=== PATIENT | female | born 1950 | race Caucasian/White ===

== ENCOUNTER → 2017-03-04 18:49 | Outpatient (CLI) | payer MEDICARE ==
[2015-08-03 13:56] VITALS: BMI 29.0
[~2017-03-04 18:49] MED LIST: ALAWAY10 ML EACH EYE; ASPIRIN EC81 M1 PO; ATIVAN1 MG PO; BENEFIBER1 PKT PO; BIOTIN PO; BUMEX 1 MG TAB1 MG PO; COLACE100 MG PO; DEXILANT60 MG PO; DULERA 100 MCG8.8 GM INH; FERROUS SULFAT325 MG PO; GAVISCON LIQUI355 ML PO; HYDROCODONE-APA1 TAB PO; ICAR C PLUS PO; LEVAQUIN500 MG PO; LEXAPRO20 MG PO; LUTEIN20 MG PO; MEDROL DOSE PACK4 MG PO; NASONEX NASAL S17 GM NS; PHENERGAN25 M1 PO; PLAVIX75 MG PO; POTASSIUM99 M1 PO; PREMARIN0.625 MG PO; PRINIVIL20 MG PO; PROAIR HFA8.5 GM INH; SINGULAIR10 MG PO; SOMA350 MG PO; SYNTHROID75 MCG PO; TUMS500 MG PO; VITAMIN B-122500 MCG PO; VITAMIN B-6200 M1 PO; VITAMIN D3 PO; XANAX0.25 MG PO; ZYRTEC10 MG; ZYRTEC10 MG PO
== END | disposition home or self-care (01) ==
LOC: D.MAMMO 13:00
DX: Z12.31 Encounter for screening mammogram for malignant neoplasm of breast (principal)

== ENCOUNTER → 2017-03-27 16:29 | Outpatient (CLI) | payer MEDICARE ==
[2015-08-03 13:56] VITALS: BMI 29.0
== END | disposition home or self-care (01) ==
LOC: D.MAMMO 14:00
DX: R92.8 Other abnormal and inconclusive findings on diagnostic imaging of breast (principal)

== ENCOUNTER → 2017-06-19 13:21 | Outpatient (CLI) | payer MEDICARE ==
[2015-08-03 13:56] VITALS: BMI 29.0
== END | disposition home or self-care (01) ==
LOC: D.RAD 13:21
DX: K59.00 Constipation, unspecified (principal)

== ENCOUNTER 2017-08-25 11:45 | Emergency (ER) | payer MEDICARE ==
[2015-08-03 13:56] VITALS: BMI 29.0
[2017-08-25 12:24] LABS: BASOPHILS 0.2 % (0-2); EOSINOPHILS 2.1 % (0-7); HEMATOCRIT 39.6 % (36.0-48.0); HEMOGLOBIN 13.2 g/dL (12-16); IMMATURE GRANULOCYTES 0.2 % (0-5); LYMPHOCYTES 10.9 % (15-50); MCH 30.1 pg (26.0-34.0); MCHC 33.3 g/dL (31.0-37.0); MCV 90.2 fL (80.0-100.0); MEAN PLATELET VOLUME 9.1 fL (7.4-10.4); MONOCYTES 2.1 % (2-11); NEUTROPHILS 84.5 % (40-80); PLATELET COUNT 191 10x3/uL (130-400); RBC 4.39 10x6/uL (4.00-5.40); RDW 13.3 % (11.5-14.5); WBC 6.1 10x3/uL (4.8-10.8)
[2017-08-25 12:46] LABS: ALBUMIN 3.6 g/dL (3.4-5.0); ALKALINE PHOSPHATASE 68 U/L (46-116); ALT (SGPT) 20 U/L (10-68); BILIRUBIN - TOTAL 0.28 mg/dL (0.2-1.3); CALC OSMOLALITY 280 mosm/kg (275-300); CALCIUM 8.5 mg/dL (8.5-10.1); CHLORIDE - SERUM 102 mmol/L (98-107); CREATININE - SERUM 1.1 mg/dL (0.6-1.3); GLUCOSE 97 mg/dL (74-106); POTASSIUM - SERUM 3.8 mmol/L (3.5-5.1); PROTEIN - SERUM 7.5 g/dL (6.4-8.2); SODIUM 140 mmol/L (136-145); UREA NITROGEN 19 mg/dL (7-18); eGFR NON AFRICAN AMERICAN 52 mL/min (90-120)
[2017-08-25 12:50] LABS: TROPONIN-I < 0.017 ng/mL (0.000-0.060)
== END 2017-08-25 19:34 | disposition home or self-care (01) ==
LOC: D.ER 11:45
PROVIDERS: Emergency Medicine
DX: I10 Essential (primary) hypertension (principal); J44.9 Chronic obstructive pulmonary disease, unspecified; J45.909 Unspecified asthma, uncomplicated; H81.09 Meniere's disease, unspecified ear

== ENCOUNTER 2018-01-16 11:03 | Emergency (ER) | payer MEDICARE ==
[~2018-01-16] VITALS: Ht 170.2 cm; Wt 79.1 kg
[2018-01-16 11:19] VITALS: Ht 170.2 cm; Wt 79.1 kg
[2018-01-16 12:15] LABS: ALBUMIN 3.4 g/dL (3.4-5.0); ALKALINE PHOSPHATASE 69 U/L (46-116); ALT (SGPT) 14 U/L (10-68); BILIRUBIN - TOTAL 0.23 mg/dL (0.2-1.3); CALC OSMOLALITY 280 mosm/kg (275-300); CALCIUM 8.1 mg/dL (8.5-10.1); CARBON DIOXIDE 30.7 mmol/L (21.0-32.0); CHLORIDE - SERUM 105 mmol/L (98-107); CREATININE - SERUM 1.1 mg/dL (0.6-1.3); GLUCOSE 95 mg/dL (74-106); POTASSIUM - SERUM 3.6 mmol/L (3.5-5.1); PROTEIN - SERUM 6.5 g/dL (6.4-8.2); SODIUM 140 mmol/L (136-145); UREA NITROGEN 19 mg/dL (7-18); eGFR NON AFRICAN AMERICAN 52 mL/min (90-120)
[2018-01-16 12:22] LABS: BASOPHILS 0.9 % (0-2); HEMATOCRIT 34.4 % (36.0-48.0); HEMOGLOBIN 11.1 g/dL (12-16); LYMPHOCYTES 21.9 % (15-50); MCH 28.4 pg (26.0-34.0); MCHC 32.3 g/dL (31.0-37.0); MEAN PLATELET VOLUME 9.6 fL (7.4-10.4); MONOCYTES 9.1 % (2-11); NEUTROPHILS 56.1 % (40-80); PLATELET COUNT 198 10x3/uL (130-400); RBC 3.91 10x6/uL (4.00-5.40); RDW 13.6 % (11.5-14.5); WBC 5.6 10x3/uL (4.8-10.8)
[2018-01-16 12:27] LABS: CREATINE KINASE 120 UL (21-215)
[2018-01-16 12:29] LABS: TROPONIN-I < 0.017 ng/mL (0.000-0.060)
[2018-01-16] MEDS ORDERED: NORVASC10 MG PO (12:43)
[2018-01-16 13:26] VITALS: BP 171/88
== END 2018-01-16 13:46 | disposition home or self-care (01) ==
LOC: D.ER 11:03
PROVIDERS: Emergency Medicine
DX: I10 Essential (primary) hypertension (principal); R07.9 Chest pain, unspecified; R51 Headache; R42 Dizziness and giddiness; R11.2 Nausea with vomiting, unspecified; Z86.73 Personal history of transient ischemic attack (TIA), and cerebral infarction without residual deficits; E07.9 Disorder of thyroid, unspecified

== ENCOUNTER 2018-03-25 12:17 | Emergency (ER) | payer MEDICARE ==
[~2018-03-25] VITALS: Ht 170.2 cm; Wt 79.1 kg
[~2018-03-25 12:17] MED LIST changes: +NORVASC10 MG PO
[2018-03-25 12:22] VITALS: Ht 170.2 cm; Wt 79.1 kg
[2018-03-25 14:32] VITALS: BP 122/64
== END 2018-03-25 14:32 | disposition home or self-care (01) ==
LOC: D.ER 12:17
DX: S00.93XA Contusion of unspecified part of head, initial encounter (principal); S80.02XA Contusion of left knee, initial encounter; W18.31XA Fall on same level due to stepping on an object, initial encounter; Y93.89 Activity, other specified; Y92.019 Unspecified place in single-family (private) house as the place of occurrence of the external cause; Z86.73 Personal history of transient ischemic attack (TIA), and cerebral infarction without residual deficits; G40.909 Epilepsy, unspecified, not intractable, without status epilepticus; E03.9 Hypothyroidism, unspecified; I10 Essential (primary) hypertension

== ENCOUNTER → 2018-08-06 12:59 | Outpatient (CLI) | payer MEDICARE ==
[2018-03-25 12:22] VITALS: BMI 27.3
== END | disposition home or self-care (01) ==
LOC: D.MRI 12:59
PROVIDERS: ATTEND Orthopaedic Surgery
DX: M54.16 Radiculopathy, lumbar region (principal)

== ENCOUNTER → 2018-09-03 13:51 | Day surgery (SDC) | payer MEDICARE ==
[2018-03-25 12:22] VITALS: BMI 27.3
--- NOTE | ~2018-09-03 | HEMODYNAMI ---
PATIENT:ALEJANDRA BURGOS MEDICAL RECORD: [id number] : 46 LOCATION:[facility] ADMISSION DATE: 09/03/18 Generatedon:09/03/201815:15 Patient name: ALEJANDRA BURGOS Patient #: [id number] SSN: D OB: 1950 Date of study: 09/03/2018 Page: Of Hemodynamic Procedure Report Patient Data Patient Demographics Procedure consent was obtained First Name: ALEJANDRA Gender: Female Last Name: AUBREY : 1950 Middle Initial: RADHA Age: 68 year(s) Patient #: [id number] Race: Unknown Additional ID: [id number] Contact details Address: [address] [place] [address] State: [place] City: [place] Zip code: [address] Past Medical History Allergies Allergen Reaction Date Comments Reported Demerol 09/03/2018 Morphine 09/03/2018 Admission Admission Data Admission Date: 09/03/2018 Admission Time: 13:51 Procedure Procedure Types Cath Procedure Peripheral Cath Diagnostic Procedure Miscellaneous Epidural Steroid Injection Procedure Description Procedure Date Procedure Date: 09/03/2018 Procedure Start Time: 15:02 Procedure Staff Name Function Bethel Alvarez MD Performing Physician Everardo Grover RT Monitor Karen Fisher RN Nurse Procedure Data Cath Procedure Fluoroscopy Diagnostic fluoroscopy Total fluoroscopy Time: 0.2 time: 0.2 min min Diagnostic fluoroscopy Total fluoroscopy dose: 5 dose: 5 mGy mGy Hemodynamics Rest Pre Cath Intra NCS Post Cath Procedure Log Time Note 14:58:34 Everardo Grover RT (R) (CV) sent for patient. Start room use. 14:58:41 Time tracking: Regular hours (M-F 7:00 - 5:00) 14:58:46 Patient received from Outpatients to IR Alert and oriented. Tansferred to table in Prone position. 14:58:49 Signed procedure consent form obtained from patient. 14:58:51 Correct patient and procedure confirmed by team. 14:58:53 Full Disclosure recording started 14:58:55 Pre-procedure instructions explained to patient. 14:58:56 Pre-op teaching completed and patient verbalized understanding. 14:59:08 Patient allergic to Demerol 14:59:32 Patient allergic to Morphine 14:59:35 Is patient on blood thinner?No 14:59:45 Lumbar area was prepped with betadine and draped in sterile fashion 15:01:41 Physician arrived 15:01:41 --------ALL STOP TIME OUT------ 15:01:42 Final Timeout: patient, procedure, and site verified with staff and physician. All members of the team are in agreement. 15:01:45 Lumbar site verified by team. 15:02:02 Procedure started. 15:02:14 Sedation plan: Local Anesthetic Medication:Lidocaine 15:02:26 Local anesthetic to Lumbar area with Lidocaine 1% by Bethel Alvarez MD.INITIAL ACCESS ONLY 15:02:37 KIT EPIDURAL CATHETERIZATION opened to sterile field. 15:14:23 Procedure ended.(Physican Out) 15:14:37 Fluoroscopy time 00.20 minutes. 15:14:40 Fluoroscopy dose: 5 mGy 15:14:40 Flurop Dose total: 5 15:14:57 bandaide applied site stable and pt .sent home Device Usage Item Name Manufacture Quantity Catalog Hospital Part Current Minima l Lot# / Number Charge Number Stock Stock Serial# Code KIT EPIDURAL Teleflex 1 [id number] CATHETERIZATION Signature Audit [place] Stage Time Signature Unsigned Intra-Procedure 09/03/2018 Everardo 3:15:11 PM Lenore RT (R) (CV) Signatures Monitor : Everardo Signature : Lenore RT Date : Time : [place] [id number] [place] [address]
== END | disposition home or self-care (01) ==
LOC: D.SP 13:00
PROVIDERS: ATTEND Orthopaedic Surgery
DX: M54.5 Low back pain (principal); Z01.812 Encounter for preprocedural laboratory examination

== ENCOUNTER 2019-01-11 18:29 | Emergency (ER) | payer MEDICARE ==
[~2019-01-11] VITALS: Ht 170.2 cm; Wt 79.5 kg
[2019-01-11 18:32] VITALS: Ht 170.2 cm; Wt 79.5 kg
[2019-01-11 20:30] VITALS: BP 164/92
== END 2019-01-11 20:30 | disposition home or self-care (01) ==
LOC: D.ER 18:29
DX: S80.02XA Contusion of left knee, initial encounter (principal); X58.XXXA Exposure to other specified factors, initial encounter; Y93.89 Activity, other specified; Y92.89 Other specified places as the place of occurrence of the external cause; S13.4XXA Sprain of ligaments of cervical spine, initial encounter

== ENCOUNTER → 2019-05-03 20:55 | Outpatient (CLI) | payer MEDICARE ==
[2019-01-11 18:32] VITALS: BMI 27.4
== END | disposition home or self-care (01) ==
LOC: D.MAMMO 03-26 11:15
PROVIDERS: ATTEND Family Medicine
DX: Z12.31 Encounter for screening mammogram for malignant neoplasm of breast (principal)

== ENCOUNTER → 2019-11-10 08:07 | Outpatient (CLI) | payer MEDICARE ==
[2019-01-11 18:32] VITALS: BMI 27.4
--- NOTE | ~2019-11-10 | EC ---
PATIENT:ALEJANDRA BURGOS DATE OF SERVICE: 11/10/19 SEX: F MEDICAL RECORD: [id number] DATE OF : 46 LOCATION:[facility] AGE OF PATIENT: 69 ADMISSION DATE: 11/10/19 REFERRING PHYSICIAN: INTERPRETING PHYSICIAN: ROLAND FINLEY MD ECHOCARDIOGRAM REPORT ECHO CHARGES 4 ECHO COMPLETE Date: 11/10/19 CLINICAL DIAGNOSIS: HTN/HEART MURMUR ECHOCARDIOGRAPHIC MEASUREMENTS (adult normal given) AC root (d.<3.7cm) 3.6 cm LV Septum d (<1.2 cm> 1.6 cm Valve Excursion 1.3 cm LV Septum (systole) 1.7 cm Left Atria (s.<4.0cm> 5.2 cm LVPW d(<1.2cm) 1.4 cm RV (d.<2.3cm) 3.7 cm LVPW (sytole) 1.9 cm LV diastole(<5.6CM) 4.5 cm MV E-F(>70mm/sec) cm LV systole 2.2 cm LVOT Diameter 1.8 cm MV exc.(>10mm) 1.4 cm Est.ejection fraction (50-75%) % DOPPLER: LVIT cm/sec A 138.0cm/sec E 109.0 cm/sec LA cm/sec RVSP 37 mmHg LVOT 121 cm/sec AOP1/2T 556 m/s Asc. Ao 170 cm/sec RVOT 80 cm/sec RA cm/sec PA 89 cm/sec AV Gradient Peak 11.63mmHg AV Mean 6.03 mmHg AV Area 1.8 cm MV Gradient Peak 8.68 mmHg MV Mean 2.80 mmHg MV Area cm COMMENTS: Garageman: 2 MARIAH JOSE Mail Technician: 3 Dr. Mckay TAPE# PACS Pericardial Effusion N DATE OF SERVICE: Adequate 2D, color flow imaging, spectral Doppler, and M-Mode. LVH is present. LV internal dimensions are normal. Wall motion is normal. EF is greater than or equal to 55%. Aortic valve is tricuspid. No evidence of stenosis by Doppler interrogation. Left atrium is dilated at 5.2 cm. Mitral valve is thickened. Moderate MR. Right-sided chambers are grossly normal. Mild TR. ECHOCARDIOGRAM REPORT [id number] ALEJANDRA BURGOS TRANSINT:[id number] Voice Confirmation ID: [id number] DOCUMENT ID: [id number] ROLAND FINLEY MD CC: [id number] DICTATION DATE: 11/11/19 1516 TILESETTER: 11/11/19 1827 DEP CLI 11/10/19 [place] [id number] [place] [id number]
== END | disposition home or self-care (01) ==
LOC: D.HCCECHO 08:07
PROVIDERS: ATTEND Internal Medicine Cardiovascular Disease
DX: I20.9 Angina pectoris, unspecified (principal); I10 Essential (primary) hypertension

== ENCOUNTER 2020-08-19 18:55 | Inpatient (IN) | payer MEDICARE ==
[~2020-08-19] VITALS: Ht 165.1 cm; Wt 68.9 kg
--- NOTE | ~2020-08-19 | OP ---
PATIENT NAME: ALEJANDRA CASTELLON MEDICAL RECORD: [id number] :46 LOCATION:D.M3 D.1205 ADMISSION DATE:08/19/20 SURGEON: ANMOL SCHMIDT MD DATE OF OPERATION: 08/21/2020 PREOPERATIVE DIAGNOSIS: Right intertrochanteric hip fracture. POSTOPERATIVE DIAGNOSIS: Right intertrochanteric hip fracture. PROCEDURE PERFORMED: Cephalomedullary nailing, right hip. INDICATIONS: Ms. Castellon is a 70-year-old female who fell this weekend and injured her right hip. She was walking in her house, going up some steps when she tripped and fell landing on her right side. She complained of pain and inability to weightbear following the accident and was brought to [place] where x-rays showed a fracture of the right hip. CT scan showed evidence of a greater trochanteric fracture that appeared to extend into the intertrochanteric region posteriorly. I talked to her about the injury and need for surgical repair. She was seen by Dr. Pal with the medical team and optimized for surgery. Arrangements made for her to come to the operating room today. Risks, benefits and alternatives of surgery were discussed with the patient and consent was obtained. DESCRIPTION OF PROCEDURE: The patient was met in the holding area where her identity and confirmation of procedure was performed. The right lower extremity was marked. She was taken to the operating room where she was placed supine on the operating table, and anesthesia was administered. She was then positioned on the Hunter table. Extremities were positioned and padded appropriately. Right lower extremity was prepped and draped in a sterile fashion. The patient received preoperative antibiotics and timeout was performed before initiating the case. Upon initiation of the case, a starting point at the greater trochanter was obtained. Incision was made over the lateral hip and our guide pin was inserted. We then obtained our starting point at the tip of the greater trochanter both in the AP and lateral planes. The guidewire was then advanced. We then overreamed with our opening reamer. A 10 x 170 gamma nail was then placed and advanced down to the appropriate level of the femoral neck. Once we were pleased with its position, a separate incision was made over the lateral hip for a cephalomedullary guide. It was then inserted and our cephalomedullary guidepin was then placed into the center of the femoral head. This was confirmed with AP and lateral planes. It was measured to 80. We then overdrilled for our cephalomedullary screw and advanced the irrigating pump operator to the appropriate depth. The proximal locking screw was then placed and backed off a quarter turn. The cephalomedullary guide was removed and a distal locking screw was placed through the static hole using the outrigger device. This completed our fixation. Final images were obtained that showed good alignment and fixation of her fracture. Tip apex distance was less than 25 mm. The wounds were irrigated thoroughly with saline. The deep tissues were closed with Vicryl suture and the skin was closed with kiran. A sterile dressing was placed. The patient was turned back over to anesthesia where she was awakened, extubated, and taken to recovery room in stable condition. POSTOPERATIVE PLAN: The patient is going to return to the floor for continued postoperative care. She will receive 24 hours of postoperative antibiotics and will be started on DVT prophylaxis tomorrow. Physical therapy will be consulted to assist with mobilization, weightbearing as tolerated, right lower extremity. OPERATIVE REPORT [id number] ALEJANDRA CASTELLON Rehab consult will also be placed. COMPLICATIONS: None. ESTIMATED BLOOD LOSS: 400 mL. ANESTHESIA: General. TRANSINT:[id number] Voice Confirmation ID: [id number] DOCUMENT ID: [id number] ANMOL SCHMIDT MD CC: [id number] DICTATION DATE: 08/21/20 1418 CEMENT CUTTER: 08/21/202219 ADM IN [place] [id number] [place] [id number]
--- NOTE | 2020-08-19 19:00 | NUR ---
ASSUMED PT CARE
--- NOTE | 2020-08-19 19:15 | NUR ---
NOTIFIED PROVIDER OF HYPOTENSION, ORDER RECIEVED FOR NS BOLUS.
--- NOTE | 2020-08-19 21:15 | NUR ---
NOTIFIED PROVIDER DARWIN HAMPTON OF PT REMAINING HYPOTENSIVE AFTER BOLUS, ORDER TO CHECK MANUAL BP.
--- NOTE | 2020-08-19 21:20 | NUR ---
MANUAL BP 88/58
--- NOTE | 2020-08-19 21:32 | NUR ---
NOTIFIED DARWIN HAMPTON OF RESULT OF MANUAL BP, ORDER TO INCREASE FLUIDS TO 150 MLS/HR
[2020-08-19 23:15] VITALS: BP 133/53
[2020-08-19 23:53] VITALS: BMI 25.3
[2020-08-20] MEDS ORDERED: CYMBALTA60 MG PO (00:36)
[2020-08-20] MEDS ORDERED: NEXIUM40 MG PO (00:36)
[2020-08-20] MEDS ORDERED: FLUTICASONE PRO16 GM NASAL (00:37)
[2020-08-20] MEDS ORDERED: GABAPENTIN100 MG PO (00:37)
[2020-08-20] MEDS ORDERED: PREDNISOLONE AC15 ML RIGHT EYE (00:39)
[2020-08-20] MEDS ORDERED: LISINOPRIL40 MG PO (00:40)
[2020-08-20 04:00] VITALS: BP 136/66
[2020-08-20 05:26] LABS: BASOPHILS 0.2 % (0-2); HEMATOCRIT 25.9 % (36.0-48.0); HEMOGLOBIN 7.8 g/dL (12-16); LYMPHOCYTE ABS# 0.81 10x3/uL (1.18-3.74); LYMPHOCYTES 19.9 % (15-50); MCH 24.9 pg (26.0-34.0); MCHC 30.1 g/dL (31.0-37.0); MCV 82.7 fL (80.0-100.0); MEAN PLATELET VOLUME 9.1 fL (7.4-10.4); MONOCYTES 13.5 % (2-11); NEUTROPHIL ABS# 2.62 10x3/uL (1.56-6.13); NEUTROPHILS 64.4 % (40-80); RBC 3.13 10x6/uL (4.00-5.40); RDW 15.1 % (11.5-14.5); WBC 4.1 10x3/uL (4.8-10.8)
[2020-08-20 05:27] LABS: PLATELET COUNT 135 10x3/uL (130-400)
[2020-08-20 05:45] LABS: INR 1.22 (0.85-1.17); PROTIME 14.3 SECONDS (11.6-15.0)
[2020-08-20 05:47] LABS: ALBUMIN 2.9 g/dL (3.4-5.0); ANION GAP 9.3 mmol/L (8-16); BILIRUBIN - TOTAL 0.23 mg/dL (0.2-1.3); CALCIUM 8.2 mg/dL (8.5-10.1); CARBON DIOXIDE 28.4 mmol/L (21.0-32.0); POTASSIUM - SERUM 3.7 mmol/L (3.5-5.1); PROTEIN - SERUM 5.5 g/dL (6.4-8.2)
[2020-08-20 09:19] VITALS: BP 95/62
--- NOTE | 2020-08-20 12:45 | NUR ---
TRANSFUSING 1ST UNIT PRBC'S WITH NO S/S OF REACTION NOTED. SERVICE CORRESPONDENT AT PRESCRIBED SETTINGS WITH EFFECTIVE RELIEF OF RIGHT HIP PAIN
[2020-08-20 13:35] VITALS: BP 117/63
--- NOTE | 2020-08-20 15:07 | NUR ---
STARTED 2ND UNIT PRBC'S WITH NO S/S OF REACTION NOTED.
[2020-08-20 17:56] VITALS: BP 122/60
[2020-08-20 17:58] LABS: BASOPHILS 0.2 % (0-2); EOSINOPHILS 2.4 % (0-7); IMMATURE GRANULOCYTES 0.2 % (0-5); LYMPHOCYTE ABS# 1.03 10x3/uL (1.18-3.74); LYMPHOCYTES 20.4 % (15-50); MCH 26.1 pg (26.0-34.0); MCHC 31.1 g/dL (31.0-37.0); MEAN PLATELET VOLUME 8.7 fL (7.4-10.4); MONOCYTES 12.7 % (2-11); NEUTROPHIL ABS# 3.23 10x3/uL (1.56-6.13); NEUTROPHILS 64.1 % (40-80); PLATELET COUNT 116 10x3/uL (130-400); RBC 3.75 10x6/uL (4.00-5.40); RDW 14.6 % (11.5-14.5)
[2020-08-20 18:06] LABS: HEMATOCRIT 31.5 % (36.0-48.0); HEMOGLOBIN 9.8 g/dL (12-16)
--- NOTE | 2020-08-20 19:35 | NUR ---
PATIENT RESTING IN BED ON PHONE AND DENIES NEEDS AT THIS TIME. BED IN LOWEST POSITION AND CALL LIGHT IN REACH. ENCOURAGED PATIENT TO CALL WITH NEEDS.
[2020-08-20 20:00] VITALS: BP 119/65
--- NOTE | 2020-08-20 20:30 | NUR ---
ADMINISTERED MEDS PER ORDERS. ENCOURAGED TO CALL WITH NEEDS.
[2020-08-21] VITALS (13 sets, daily range): BP systolic 107–133; BP diastolic 45–550; Ht 165.1 cm; Wt 68.9 kg
--- NOTE | 2020-08-21 05:30 | NUR ---
THIRD UNIT PRBC'S TRANSFUSED
[2020-08-21 06:36] LABS: ANION GAP 7.4 mmol/L (8-16); CALCIUM 8.2 mg/dL (8.5-10.1); CARBON DIOXIDE 29.2 mmol/L (21.0-32.0); CREATININE - SERUM 0.9 mg/dL (0.6-1.3); POTASSIUM - SERUM 3.6 mmol/L (3.5-5.1)
[2020-08-21 07:08] LABS: BASOPHILS 0.4 % (0-2); EOSINOPHILS 3.1 % (0-7); HEMATOCRIT 33.7 % (36.0-48.0); HEMOGLOBIN 10.5 g/dL (12-16); IMMATURE GRANULOCYTES 0.2 % (0-5); LYMPHOCYTE ABS# 1.02 10x3/uL (1.18-3.74); LYMPHOCYTES 22.8 % (15-50); MCH 26.5 pg (26.0-34.0); MCHC 31.2 g/dL (31.0-37.0); MCV 85.1 fL (80.0-100.0); MEAN PLATELET VOLUME 9.2 fL (7.4-10.4); MONOCYTES 11.4 % (2-11); NEUTROPHIL ABS# 2.78 10x3/uL (1.56-6.13); NEUTROPHILS 62.1 % (40-80); PLATELET COUNT 116 10x3/uL (130-400); RBC 3.96 10x6/uL (4.00-5.40); RDW 14.8 % (11.5-14.5); WBC 4.5 10x3/uL (4.8-10.8)
--- NOTE | 2020-08-21 07:55 | HP ---
PATIENT: ALEJANDRA JOHNSON MEDICAL RECORD: [id number] ACCOUNT: [id number] LOCATION:D.MS Alvarez2216 : 46 ADMISSION DATE: 08/19/20 PCP: No PCP HISTORY AND PHYSICAL EXAMINATION REASON FOR ADMISSION: Right hip pain post-fall. HISTORY OF PRESENT ILLNESS: The patient is a delightful 70-year-old female with history of degenerative lumbar disc disease and stenosis, who has had trouble with back pain and weakness in her left leg for some time. She was scheduled for lumbar laminectomy, but had to delay that due to a corneal transplant she had performed. She said she has noticed her leg has been somewhat weakened yesterday when walking in her home. She thinks she caught her right toe on a step and fell forward full weight on her right hip. She developed intense pain, was brought to the ED and found to have a right trochanteric fracture with hematoma formation. The patient has been admitted for preoperative evaluation and surgery on the hip per Dr. Knight. She denies any recent chest pain. Had a negative Cardiolite stress test last year and echo did show left ventricular hypertrophy, LAE, and moderate MR. She denies any chest pain, shortness of breath. PAST HISTORY: Asthma; GERD; hypertension; arthritis; lumbar stenosis; hypothyroidism; macular degeneration; corneal dystrophy, right eye; Meniere's disease; peripheral neuropathy; depression. COVID-, July of 2019 and she has been vaccinated. Hypertension, hypothyroidism, osteoporosis, anemia, B12 deficiency, iron deficiency. SURGICAL HISTORY: Cholecystectomy; hysterectomy; tonsillectomy; vein stripping, varicose veins; ORIF, right ankle post-fracture; cataract surgery; corneal transplant, right eye. VACCINES: She has had Prevnar, Pneumovax, and flu vaccine. FAMILY HISTORY: Parents are . Mother of breast cancer. Father of multiple myeloma. One brother of multiple myeloma. ALLERGIES: DEMEROL, TALWIN, AND MORPHINE. HOME MEDICATIONS: Prilosec 20 mg daily, montelukast 10 mg with evening meal, clopidogrel 75 mg a day, gabapentin 100 mg 2 capsules b.i.d., Flonase nasal spray 1 spray each nostril daily, [place] 10/325 one q.6 hours for back pain, lisinopril 40 mg daily, levothyroxine 75 mcg p.o. daily, Soma 350 mg at bedtime p.r.n. muscle spasm, Bumex 1 mg daily, Xanax 0.25 one b.i.d. p.r.n. anxiety, Cymbalta 60 mg 1 capsule by mouth daily, tiotropium bromide 2.5 mcg one inhalation daily, amlodipine 10 mg daily, Dulera 200 mg 2 puffs twice daily, aspirin 81 mg daily. REVIEW OF SYSTEMS: GENERAL: No recent fever, fatigue or weight change. HEENT: She has had visual change in her right eye due to recent surgery. She admits to sinus congestion, responding to steroid nasal sprays. RESPIRATORY: Denies shortness of breath on exertion, recent cough, sputum production or hemoptysis. CARDIAC: No exertional chest pain, claudication or edema. Had negative Cardiolite stress test in 2019 with echo with above findings. HISTORY AND PHYSICAL [id number] ALEJANDRA JOHNSON GASTROINTESTINAL: No nausea, vomiting, change in stools or blood per rectum. She had a colonoscopy in the recent past that was unremarkable. Recent Hemoccult was negative for blood. GENITOURINARY: Mild incontinence. No dysuria. GYNECOLOGICAL: No vaginal bleeding. She is postmenopausal. ENDOCRINE: Denies polyuria, polydipsia, heat or cold intolerance. NEUROLOGIC: No history of stroke, TIA, vascular headaches, seizures. She does have numbness in her legs. She also had some weakness in her right leg as well. MUSCULOSKELETAL: Chronic pain lumbar spine, now acute pain in the right hip. PSYCHIATRIC: Admits to depressed mood since her a year ago. PHYSICAL EXAMINATION: VITAL SIGNS: Temperature is 98.1 Fahrenheit orally, pulse 72 and regular, respirations 22, blood pressure 136/66 with a sat of 96% on room air. GENERAL: The patient is alert and oriented and gives a good history. HEENT: Normocephalic. EYES: She has fresh corneal transplant over her right iris. The left eye is unremarkable except for cataracts. OROPHARYNX: No lesions. NECK: Supple, without bruits or JVD appreciated. CHEST: Distant breath sounds without wheeze or rales. HEART: Regular rate and rhythm with II/ aortic murmur of the mitral valve. BREASTS: Symmetrical. ABDOMEN: Soft, nontender. PELVIC: Deferred. EXTREMITIES: She has some bruising of her right hip, pain with any abduction or external rotation. Good distal pulses. NEUROLOGIC: She is oriented to person, place and time. Cranial nerves were intact. Gait was not tested due to a recent trauma. PSYCHIATRIC: Admits to mild depression, but not severe. No suicidal thoughts. LABORATORY DATA: Shows a H and H of 7.8 and 25.9 reflecting her recently diagnosed anemia by Dr. Rodriguez. She was iron deficient and B12 deficient. INR is 1.2. Sodium 141, potassium 3.7, BUN and creatinine are 14 and 1.0, glucose 100. Liver functions are normal. DIAGNOSTIC DATA: Chest x-ray is pending. CT shows right greater trochanter fracture with overlying hematoma. EKG is currently pending. ASSESSMENT: 1. Right trochanteric fracture from fall. 2. Lumbar stenosis with right lower extremity weakness. 3. Neuropathy. 4. Anemia, iron deficiency and B12 deficiency, hypertension, corneal dystrophy, hypothyroidism, left atrial enlargement, left ventricular hypertrophy, and moderate mitral regurgitation. PLAN: We will review EKG in light of recent cardiac workup, which was essentially negative. She is medically stable for some surgery. We will transfuse 2 units of packed cells with Lasix in between units today and Dr. Knight will make determination of resurgery. TRANSINT:[id number] Voice Confirmation ID: [id number] DOCUMENT ID: [id number] HISTORY AND PHYSICAL [id number] ALEJANDRA JOHNSON TIMOTHY MD at 0755 CC: [id number] DICTATION DATE: 08/20/20 08 BOILER HOUSE OPERATOR: 08/20/20 1217 ADM IN [place] [id number] [place] [address]
--- NOTE | 2020-08-21 11:56 | NUR ---
PT GIVEN ICE CREAM AND ICE WATER. MOTHER GIVEN ICE CREAM AND COFFEE. NO NEEDS OR CONCERNS AT THIS TIME. VS STABLE. CL IN REACH. PULSE PALPABLE IN ALL EXTREMETIES. WCTM
--- NOTE | 2020-08-21 14:30 | NUR ---
REHAB PRESCREENING Rehab referral received and chart reviewed. This patient is a good candidate for acute inpatient rehab if she is willing to come. We will begin her electronic screen and plan to admit her when her physicians feel she is appropriate for discharge. Thank you for this referral! Janice Duran, MINERALOGY TEACHER Rehab PD
--- NOTE | 2020-08-21 16:00 | NUR ---
PT GIVEN BRITT POPSICLE UPON ASKING IF SHE NEEDED ANYTHING. NO FURTHER NEEDS AT THIS TIME. WCTM
--- NOTE | 2020-08-21 17:00 | NUR ---
PT CO OF PAIN. GIVEN HYDROCODONE PER EMAR. WCTM
--- NOTE | 2020-08-21 18:00 | NUR ---
PT HAS NO CO OF HEADACHE OR PAIN AT THIS TIME. SHE IS CO OF ME WAKING HER REPEATEDLY. CL IN REACH. BED ALARM ON. WCTM
--- NOTE | 2020-08-22 01:08 | NUR ---
PATIENT RESTING IN BED WITH EYES CLOSED AND NO S/S OF DISTRESS.
--- NOTE | 2020-08-22 02:27 | NUR ---
PATIENT RESTING IN BED WITH EYES CLOSED AND NO S/S OF DISTRESS.
[2020-08-22 04:30] VITALS: BP 125/57
[2020-08-22 08:15] VITALS: BP 115/61
--- NOTE | 2020-08-22 08:42 | NUR ---
PT GIVEN COFFEE. CO OF PAIN AT A 7 OUT OF 10 ON THE PAIN SCALE. PAIN MED GIVEN PER EMAR. CL IN REACH. BED ALARM ON. IV THERAPY IN RIGHT HAND. CL IN REACH. WCTM
[2020-08-22 11:24] VITALS: BP 126/61
[2020-08-22 14:46] LABS: HEMATOCRIT 30.2 % (36.0-48.0); HEMOGLOBIN 9.5 g/dL (12-16); MCH 26.4 pg (26.0-34.0); MCHC 31.5 g/dL (31.0-37.0); MCV 83.9 fL (80.0-100.0); RBC 3.6 10x6/uL (4.00-5.40); RDW 14.5 % (11.5-14.5)
[2020-08-22 14:48] LABS: WBC 6.5 10x3/uL (4.8-10.8)
[2020-08-22 15:28] VITALS: BP 120/64
--- NOTE | 2020-08-22 16:30 | NUR ---
PT CO OF GAS AND ABD PAIN. STATES SHE HASN'T HAD A BM SINCE FRIDAY. [place] GIVEN PER EMAR. CL IN REACH. BED ALARM ON. WCTM
--- NOTE | 2020-08-22 20:00 | NUR ---
ALERT RESTING IN BED, DENIES NEEDS AT THIS TIME, SEE SHIFT ASSESSMENT CALL LIGHT IN REACH
[2020-08-22 20:04] VITALS: BP 123/55
[2020-08-23 04:00] VITALS: BP 143/63
[2020-08-23 06:04] LABS: HEMATOCRIT 27.9 % (36.0-48.0); HEMOGLOBIN 8.7 g/dL (12-16); MCH 26.3 pg (26.0-34.0); MCHC 31.2 g/dL (31.0-37.0); MCV 84.3 fL (80.0-100.0); MEAN PLATELET VOLUME 9.2 fL (7.4-10.4); RBC 3.31 10x6/uL (4.00-5.40); RDW 14.8 % (11.5-14.5)
[2020-08-23 06:22] LABS: WBC 4.5 10x3/uL (4.8-10.8)
[2020-08-23 08:10] VITALS: BP 134/68
--- NOTE | 2020-08-23 09:09 | NUR ---
REHAB PRESCREENING Rehab continues to follow this patient and will accept when her physicians feel she is appropriate for discharge if she is agreeable to come. Thank you for this referral! Janice Duran, ANTENNA DESIGN ENGINEER Rehab PD
--- NOTE | 2020-08-23 09:19 | NUR ---
PT SITTING UP IN BED. TEARFUL. QUESTIONED PT TO WHAT WAS WRONG. PT VOICES TO JUST BEING EMOTIONAL AT THIS TIME. QUESTIONED LEVEL OF PAIN. REPORTS PAIN 8/10 AT THIS TIME. PAIN MED ADMINISTERED PER MD ORDERS. IV TO RIGHT HAND, SALINE LOC'D. SITE WITHOUT REDNESS OR EDEMA. DRESSING TO RIGHT HIP C/D/I. DENIES FURTHER NEEDS AT THIS TIME. CL WITHIN REACH. ENCOURAGED TO CALL WITH NEEDS. CONTINUE POC
[2020-08-23 12:00] VITALS: BP 124/66
--- NOTE | 2020-08-23 13:56 | NUR ---
Nutrition Follow-up: POD 2 cephalomedullary nailing R hip. Pt reports not eating well 2/2 food choices. Numerous food preferences voiced. C/o difficulty chewing 2/2 missing teeth. Declines nutrition supplements. Diet: Regular PO intake: 67% avg x 3 meals yesterday No new wt; last wt: 152# (08/21) Last BM: 08/18 per pt Labs reviewed Meds noted: Mylanta, Colace, Zofran, electrolyte protocol -Dental soft added to current diet order. -Food preferences communicated to kitchen. -Encourage PO intake and honor food preferences within diet restrictions. -RD follow-up: 08/24
--- NOTE | 2020-08-23 14:23 | MORECARE ---
CASE MANAGEMENT DISCHARGE SUMMARY PATIENT: ALEJANDRA JOHNSON UNIT: [id number] ADM DATE: 08/19/20 AGE: 70 : 48 SEX: F ROOM/BED: D.1205 AUTHOR: ROCKYDOC PHYSICIAN: REFERRING PHYSICIAN: LIZZIE VENCES MD DATE OF SERVICE: 08/23/20 Case Management Discharge Planning Summary CT Patient Name: ALEJANDRA JOHNSON Attending MD : LIZZIE MUNSON Medical Record: [id number] Encounter : [id number] Facility : [id number] [place] [address] Admission Date : 122:14 Center Discharge Date : [address] [place] [address] Date of : DC Plan ID : [id number] Age/Sex/Martia : 70/ F/W Printed on : 08/23/20 14:22 CT DCP Review Details Anticipated D/C: Expected LOS : Case Status : INITIATED - Initial Reviewe: [id number] - Krystal Patterson Initial Review: 08/19/2020 Planned Disposi: 62 - Discharged/Trans to IP Rehab Facility Including Distinct Units of a Hospital Final Discharge: - Final Reviewer : : Final Review : Comments CT Entered Date Type Reviewer 08/23/20 14:03 CT Discharge Planning Krystal Patterson Comment CM met with patient at bedside after obtaining verbal consent. CM discussed availability / needs of home health, REHAB and medical equipment. Patient would like inpatient rehab at [facility], zeny signed. Anticipate dc to rehab today. IMM signed and placed on chart. Patient lives alone, uses no medical equipment. States Dr. Rodriguez is her pcp. DCP [facility] ALEJANDRA JOHNSON MR#: [id number] /Age/Sex/Gvpzic9-Flb-31 /70/F /W Attending Physician Name: HILDA VENCES [id number] Patient Account:[id number] [facility] Page -1 of 1 All edits/amendments must be made on the electronic document DICTATION DATE: 08/23/201421 FINE DINING SERVER: WALTER 08/23/20 142 RPT#: [id number] DC DATE: STATUS: ADM IN [facility] [address] [place] [address] END OF REPORT
[2020-08-23 16:10] VITALS: BP 104/62
[2020-08-23 20:00] VITALS: BP 118/63
--- NOTE | 2020-08-23 20:00 | NUR ---
RESTING IN BED DENIES NEEDS AT THIS TIME SEE SHIFT ASSESSMENT CALL LIGHT IN REACH
[2020-08-24 04:00] VITALS: BP 119/63
--- NOTE | 2020-08-24 07:30 | NUR ---
PT SITTING UP IN BED. REQUESTING COFFEE. RESP EVEN AND UNLABORED. REPORTS PAIN 4/10 AT THIS TIME. DISCUSSED NEXT ADMINISTRATION TIME OF PAIN MEDICATION WITH PT. PT VOICES UNDERSTANDING. SALINE LOC TO RIGHT FOREARM, SITE WITHOUT REDNESS OR EDEMA. DRESSING C/D/I TO RIGHT HIP. DENIES FURTHER NEEDS AT THIS TIME. CL WITHIN REACH. ENCOURAGE TO CALL WITH NEEDS. CONTINUE POC
[2020-08-24 08:15] VITALS: BP 130/72
--- NOTE | 2020-08-24 13:11 | MORECARE ---
CASE MANAGEMENT DISCHARGE SUMMARY PATIENT: ALEJANDRA JOHNSON UNIT: [id number] ADM DATE: 08/19/20 AGE: 70 : 48 SEX: F ROOM/BED: D.1205 AUTHOR: ROCKY,DOC PHYSICIAN: REFERRING PHYSICIAN: LIZZIE VENCES MD DATE OF SERVICE: 08/24/20 Case Management Discharge Planning Summary CT Patient Name: ALEJANDRA JOHNSON Attending MD : LIZZIE MUNSON Medical Record: [id number] Encounter : [id number] Facility : [id number] [facility] Admission Date : 122:14 Center Discharge Date : 08/24/[address] [place] [address] Date of : DC Plan ID : [id number] Age/Sex/Martia : 70/ F/W Printed on : 08/24/20 13:09 CT DCP Review Details Anticipated D/C: Expected LOS : Case Status : INITIATED - Initial Reviewe: [id number] - Krystal Patterson Initial Review: 08/19/2020 Planned Disposi: 62 - Discharged/Trans to IP Rehab Facility Including Distinct Units of a Hospital Final Discharge: - Final Reviewer : : Final Review : Comments CT Entered Date Type Reviewer 08/23/20 14:03 CT Discharge Planning Krystal Patterson Comment CM met with patient at bedside after obtaining verbal consent. CM discussed availability / needs of home health, REHAB and medical equipment. Patient would like inpatient rehab at the hospital at [facility], zeny signed. Anticipate dc to rehab today. IMM signed and placed on chart. Patient lives alone, uses no medical equipment. States Dr. Rodriguez is her pcp. DCP [facility] ALEJANDRA JOHNSON MR#: [id number] /Age/Sex/Vnlpne3-Xvg-38 /70/F /W Attending Physician Name: HILDA VENCES [id number] Patient Account:[id number] [facility] Page -1 of 1 All edits/amendments must be made on the electronic document DICTATION DATE: 08/24/20 1309 SERVICE LINE BUS CLEANER: DM 08/24/20 1309 RPT#: [id number] DC DATE:08/24/20 STATUS: DIS IN [address] [place] [address] END OF REPORT
[2020-08-24] MEDS ORDERED: HYDROCODON-ACE1 EAC7 PO (14:58)
--- NOTE | 2020-08-25 14:12 | MORECARE ---
CASE MANAGEMENT DISCHARGE SUMMARY PATIENT: ALEJANDRA JOHNSON UNIT: [id number] ADM DATE: 08/19/20 AGE: 70 : 46 SEX: F ROOM/BED: D.1205 AUTHOR: ROCKY,DOC PHYSICIAN: REFERRING PHYSICIAN: LIZZIE VENCES MD DATE OF SERVICE: 08/25/20 Case Management Discharge Planning Summary CT Patient Name: ALEJANDRA JOHNSON Attending MD : LIZZIE MUNSON Medical Record: [id number] Encounter : [id number] Facility : [id number] [facility] Admission Date : 122:14 Center Discharge Date : 08/24/[address] [place] [id number] Date of : DC Plan ID : [id number] Age/Sex/Martia : 70/ F/W Printed on : 08/25/20 14:11 CT DCP Review Details Anticipated D/C: Expected LOS : Case Status : INITIATED - Initial Reviewe: [id number] - Krystal Patterson Initial Review: 08/19/2020 Planned Disposi: 62 - Discharged/Trans to IP Rehab Facility Including Distinct Units of a Hospital Final Discharge: - Final Reviewer : : Final Review : Comments CT Entered Date Type Reviewer 08/23/20 14:03 CT Discharge Planning Krystal Patterson Comment CM met with patient at bedside after obtaining verbal consent. CM discussed availability / needs of home health, REHAB and medical equipment. Patient would like inpatient rehab at [facility], [place] signed. Anticipate dc to rehab today. IMM signed and placed on chart. Patient lives alone, uses no medical equipment. States Dr. Rodriguez is her pcp. DCP [facility] ALEJANDRA JOHNSON MR#: [id number] /Age/Sex/Koepvg1-Rov-60 /70/F /W Attending Physician Name: HILDA VENCES [id number] Patient Account:[id number] [facility] Page -1 of 1 All edits/amendments must be made on the electronic document DICTATION DATE: 08/25/201410 REINFORCING STEEL WORKER: WALTER 08/25/20 141 RPT#: [id number] DC DATE:08/24/20 STATUS: DIS IN [address] [place] [address] END OF REPORT
== END 2020-08-24 12:51 | DRG 482 ==
LOC: D.ER 18:55 → D.M3 22:14 → D.MS 22:14 → D.M3 08-21 15:11
PROVIDERS: Family Medicine; Orthopaedic Surgery; ADMIT Family Medicine; ATTEND Family Medicine
PROC: 0QS636Z Reposition Right Upper Femur with Intramedullary Internal Fixation Device, Percutaneous Approach (ICD-10-PCS; principal; 2020-08-21 11:30)
DX: S72.141A Displaced intertrochanteric fracture of right femur, initial encounter for closed fracture (principal); W19.XXXA Unspecified fall, initial encounter; M48.061 Spinal stenosis, lumbar region without neurogenic claudication; D50.9 Iron deficiency anemia, unspecified; I10 Essential (primary) hypertension; E03.9 Hypothyroidism, unspecified; I34.0 Nonrheumatic mitral (valve) insufficiency; M81.0 Age-related osteoporosis without current pathological fracture; K59.00 Constipation, unspecified

== ENCOUNTER 2020-08-24 12:40 | Inpatient (IN) | payer MEDICARE ==
[~2020-08-24 12:40] MED LIST changes: +CYMBALTA60 MG PO; +FLUTICASONE PRO16 GM NASAL; +GABAPENTIN100 MG PO; +LISINOPRIL40 MG PO; +NEXIUM40 MG PO; +PREDNISOLONE AC15 ML RIGHT EYE
[2020-08-24] MEDS ORDERED: HYDROCODON-ACE1 EAC7 PO (14:58)
[2020-08-25 06:32] LABS: BASOPHILS 0.6 % (0-2); EOSINOPHILS 9.6 % (0-7); HEMATOCRIT 28.4 % (36.0-48.0); HEMOGLOBIN 8.8 g/dL (12-16); LYMPHOCYTE ABS# 0.84 10x3/uL (1.18-3.74); LYMPHOCYTES 24.4 % (15-50); MCH 26.6 pg (26.0-34.0); MCV 85.8 fL (80.0-100.0); MEAN PLATELET VOLUME 9.6 fL (7.4-10.4); MONOCYTES 9.6 % (2-11); NEUTROPHIL ABS# 1.92 10x3/uL (1.56-6.13); NEUTROPHILS 55.8 % (40-80); RBC 3.31 10x6/uL (4.00-5.40); WBC 3.4 10x3/uL (4.8-10.8)
[2020-08-25 06:41] LABS: PLATELET COUNT 135 10x3/uL (130-400)
[2020-08-25 06:46] LABS: CALCIUM 8.3 mg/dL (8.5-10.1); CREATININE - SERUM 0.9 mg/dL (0.6-1.3)
[2020-08-25 07:01] LABS: ANION GAP 8.6 mmol/L (8-16); POTASSIUM - SERUM 3.6 mmol/L (3.5-5.1)
[2020-08-28 06:56] LABS: BASOPHILS 0.9 % (0-2); EOSINOPHILS 8.5 % (0-7); HEMATOCRIT 29.7 % (36.0-48.0); HEMOGLOBIN 9.2 g/dL (12-16); IMMATURE GRANULOCYTES 0.3 % (0-5); LYMPHOCYTE ABS# 1.08 10x3/uL (1.18-3.74); LYMPHOCYTES 31.7 % (15-50); MCH 26.9 pg (26.0-34.0); MCV 86.8 fL (80.0-100.0); MEAN PLATELET VOLUME 9.4 fL (7.4-10.4); MONOCYTES 12.6 % (2-11); NEUTROPHIL ABS# 1.57 10x3/uL (1.56-6.13); RBC 3.42 10x6/uL (4.00-5.40); WBC 3.4 10x3/uL (4.8-10.8)
[2020-08-28 06:57] LABS: PLATELET COUNT 187 10x3/uL (130-400)
[2020-08-28 07:10] LABS: ANION GAP 8.6 mmol/L (8-16); CARBON DIOXIDE 31.9 mmol/L (21.0-32.0); CREATININE - SERUM 0.9 mg/dL (0.6-1.3); POTASSIUM - SERUM 3.5 mmol/L (3.5-5.1)
[2020-08-29] MEDS ORDERED: PLAVIX75 MG PO (10:18)
[2020-08-29] MEDS ORDERED: BUMETANIDE0.5 MG PO (10:19)
== END 2020-08-29 13:51 | disposition home health service (06) | DRG 561 ==
LOC: D.REHAB 12:40
PROVIDERS: ADMIT Emergency Medicine
DX: S72.141D Displaced intertrochanteric fracture of right femur, subsequent encounter for closed fracture with routine healing (principal); W19.XXXD Unspecified fall, subsequent encounter; M19.90 Unspecified osteoarthritis, unspecified site; J45.909 Unspecified asthma, uncomplicated; F32.9 Major depressive disorder, single episode, unspecified; K21.9 Gastro-esophageal reflux disease without esophagitis; I10 Essential (primary) hypertension; E03.9 Hypothyroidism, unspecified; M81.0 Age-related osteoporosis without current pathological fracture; G62.9 Polyneuropathy, unspecified; H35.30 Unspecified macular degeneration; D50.9 Iron deficiency anemia, unspecified; M51.36 Other intervertebral disc degeneration, lumbar region; E53.8 Deficiency of other specified B group vitamins; H81.09 Meniere's disease, unspecified ear